=== PATIENT | male | born 1955 | race Caucasian/White ===

== ENCOUNTER 2024-06-17 05:53 | Day surgery (SDC) | payer MEDICARE ==
[2024-06-17] MEDS ORDERED: propofoL IV ONE ×2 (06:24→07:30)
[2024-06-17 06:54] LABS: ANION GAP 11.5 MEQ/L (5-15); Calcium 9.1 mg/dL (8.4-10.2); Creatinine 1 0.93 mg/dL (0.66-1.25); EST GLOMERULAR FILTRATION RATE 89.4 ML/MIN; Potassium 3.6 mmol/L (3.5-5.1)
[2024-06-17] MEDS ORDERED: Versed 2 MG/2 ML Injection ONE (07:01)
[2024-06-17 08:01] VITALS: O2SAT 96
[2024-06-17 08:09] VITALS: RESP 18
[2024-06-17 08:19] VITALS: BP 133/91; PULSE 53; TEMP 97.3
--- NOTE | 2024-06-18 12:00 | OP ---
SURGERY DATE/TIME: 06/17/2024 [id number] PREOPERATIVE DIAGNOSIS: Positive Cologuard. POSTOPERATIVE DIAGNOSIS: Colon polyps x2. PROCEDURE: Colonoscopy. SURGEON: Goyo Hill MD. ANESTHESIA: MAC by Reece Rutherford CRNA. ESTIMATED BLOOD LOSS: Minimal. SPECIMENS: Hot forceps polypectomy from the transverse colon and hot snare polypectomy from the sigmoid colon. DESCRIPTION OF PROCEDURE AND FINDINGS: After informed written consent was obtained, the patient was taken to the endoscopy suite. He was placed in a left lateral decubitus position, and anesthesia was titrated to desired level of consciousness. Digital rectal exam showed normal rectal tone with external hemorrhoids and no internal lesions. The scope was inserted in the rectum, and sequentially the entire colonic mucosa was traversed. The level of the cecum was reached and verified under direct visualization of the ileocecal valve. Upon withdrawal, there was a small sessile polyp in the transverse colon. This was grasped with forceps, cauterized, and removed in its entirety. Upon further withdrawal at approximately 45 cm scope depth, there was a slightly larger broad-based polypoid lesion which was encircled with a snare, cauterized at the base, and suctioned to the end of the scope and removed, as it was too large to fit the scope channel. It was retrieved and sent for pathology testing. The scope was then reinserted after the polyp was retrieved, and the remainder of the distal sigmoid colon and rectal area showed no other mucosal lesions. Prior to withdrawal, retroflexion showed no internal lesions here. The scope was removed, and the patient was transferred to the recovery room in good condition. I have advised him to follow up in a week for pathology results.
== END 2024-06-17 08:25 | disposition home or self-care (01) ==
LOC: SDC 05:53
PROVIDERS: ATTEND Family Medicine
DX: D12.3 Benign neoplasm of transverse colon (principal); C18.7 Malignant neoplasm of sigmoid colon; R19.5 Other fecal abnormalities; K64.4 Residual hemorrhoidal skin tags; I10 Essential (primary) hypertension
CPT/HCPCS: 36415; 80048; 93005; J2250; J2704

== ENCOUNTER 2024-07-31 11:18 | Emergency (ER) | payer MEDICARE ==
--- NOTE | 2024-07-31 11:26 | ERPHSYRPT ---
- History of Present Illness Time Seen by Provider: 07/31/24 11:26 Historian: patient Exam Limitations: no limitations Physician History: This is an obese 69-year-old white male patient who presents to the emergency department with intermittent left-sided sharp chest pain that began yesterday with associated mild shortness of breath. Today, he became more concerned be cause of the nonradiating, left-sided sharp chest pain became more constant. 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 Alfaro, but has never been diagnosed with coronary artery disease. He was recently diagnosed with colon cancer. 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 Patient did take a baby aspirin this morning. Patient has a history of hypertension and hyperlipidemia. Timing/Duration: yesterday Activities at Onset: none Quality: sharpness Location: other (Left anterior chest) Chest Pain Radiation: no radiation Severity of Pain-Max: mild (To moderate) Severity of Pain-Current: mild Modifying Factors: Improves With: nothing Associated Symptoms: shortness of breath (Mild), No cough Prior Chest Pain/Cardiac Workup: no prior chest pain, no prior cardiac workup Nitro Today/Relief: no nitro taken today Aspirin Treatment Today: 81 mg x 1, 81 mg x 3 (Provided by the emergency department on arrival to emergency room), provided at home Allergies/Adverse Reactions: Penicillins Allergy (Verified 07/31/24 11:23) Home Medications: Aspirin [Ecotrin] 81 mg PO DAILY 05/25/24 [History] Atenolol 50 mg [Tenormin 50 mg] 50 mg PO DAILY 05/25/24 [History] Atorvastatin Calcium 20 mg PO DAILY 05/25/24 [History] Elderberry Fruit [Elderberry] 350 mg PO DAILY 05/25/24 [History] Lisinopril/Hydrochlorothiazide [Lisinopril-Hctz 20-12.5 mg Tab] 1 each PO DAILY 05/25/24 [History] Multivitamin [Multi-Vitamin Daily] 1 each PO DAILY 05/25/24 [History] [place]-3 Fatty Acids/Fish Oil [Fish Oil 1,000 mg Capsule] 1,000 mg PO DAILY 05/25/24 [History] Zinc Gluconate [Zinc] 50 mg PO DAILY 05/25/24 [History] Travel Risk - International Travel Have you traveled outside of the country in past 3 weeks: No - Emerging Infectious Disease Are you exhibiting symptoms associated with any current EIDs: No - Review of Systems Constitutional: No Symptoms Eyes: No Symptoms Ears, Nose, & Throat: No Symptoms Respiratory: No Symptoms, Dyspnea Cardiac: Chest Pain Abdominal/Gastrointestinal: No Symptoms Genitourinary Symptoms: No Symptoms Musculoskeletal: No Symptoms Skin: No Symptoms Neurological: No Symptoms Psychological: No Symptoms Endocrine: No Symptoms Hematologic/Lymphatic: No Symptoms Immunological/Allergic: No Symptoms All Other Systems: Reviewed and Negative - Past Medical History Pertinent Past Medical History: Yes Neurological History: No Pertinent History ENT History: No Pertinent History Cardiac History: Hypertension, Other Respiratory History: Sleep Apnea Endocrine Medical History: Diabetes Type II Musculoskeletal History: No Pertinent History GI Medical History: Hernia History: No Pertinent History Psycho-Social History: No Pertinent History Male Reproductive Disorders: No Pertinent History - Past Surgical History Past Surgical History: Yes Neuro Surgical History: No Pertinent History Cardiac: No Pertinent History Respiratory: No Pertinent History Gastrointestinal: Hernia Repair Genitourinary: No Pertinent History Musculoskeletal: Other Male Surgical History: No Pertinent History Other Surgical History: cyst on knee removed when pt was 12 - Social History Smoking Status: Former smoker - Nursing Vital Signs Nursing Vital Signs: Initial Vital Signs Pulse Rate 70 07/31/24 11:24 Pain Scale Pain Intensity 5 - Physical Exam General Appearance: no apparent distress, alert, anxiety, obese Eye Exam: PERRL/EOMI, eyes nml inspection Ears, Nose, Throat Exam: normal ENT inspection, moist mucous membranes Neck Exam: normal inspection, non-tender, supple, full range of motion Respiratory Exam: normal breath sounds, chest tenderness (Left anterior chest), lungs clear, airway intact, No respiratory distress Cardiovascular Exam: regular rate/rhythm, normal heart sounds, normal peripheral pulses Gastrointestinal/Abdomen Exam: soft, normal bowel sounds, No tenderness Rectal Exam: not done Back Exam: normal inspection, normal range of motion, No CVA tenderness, No marcus tebral tenderness Extremity Exam: normal inspection, normal range of motion, pelvis stable Neurologic Exam: alert, oriented x 3, cooperative, 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 QTc is 461) Ordered Tests: Active Orders 24 hr Category Date Time Status EKG-ER Only STAT Care 07/31/24 11:27 Active IV Insertion STAT Care 07/31/24 11:27 Active Pulse Oximetry (ED) STAT Care 07/31/24 11:27 Active CHEST 1 VIEW (PORTABLE) Stat Exams 07/31/24 12:56 Completed CBC W DIFF Stat Lab 07/31/24 12:15 Completed CMP Stat Lab 07/31/24 12:15 Completed D-DIMER QUANTITATIVE Stat Lab 07/31/24 11:20 Completed MAGNESIUM Stat Lab 07/31/24 12:15 Completed TROPONIN Q4H Lab 07/31/24 12:15 Completed TROPONIN Q4H Lab 07/31/24 14:00 Completed TROPONIN Q4H Lab 07/31/24 19:30 Ordered [place] 3-7 Day Holter ONCE RT 07/31/24 13:26 Active Medication Summary Discontinued Medications Generic Name Dose Route Start Last Admin Trade Name Freq PRN Reason Stop Dose Admin Aspirin 324 mg 07/31/24 11:27 07/31/24 12:19 Aspirin 81 Mg Tab.Chew PO 07/31/24 11:28 324 mg STAT ONE Administration Aspirin Confirm 07/31/24 12:17 Aspirin 81 Mg Tab.Chew Administered 07/31/24 12:18 Dose 243 mg .ROUTE .STFileHold Document Management software-MED ONE Lab/Rad Data: Laboratory Result Diagrams 07/31/24 12:15 07/31/24 12:15 Laboratory Results 07/31/24 07/31/24 07/31/24 Range/Units 14:00 12:15 12:15 WBC (4.23-9.07) x10^3/uL RBC (4.63-6.08) x10^6/uL Hgb (13.7-17.5) g/dL Hct (40.1-51.0) % MCV (79.0-92.2) fL MCH (25.7-32.2) pg MCHC (32.3-36.5) g/dL RDW (11.6-14.4) % Plt Count (163-337) x10^3/uL MPV (9.4-12.4) fL Gran % (34.0-67.9) % Immature Gran % (Auto) (0.001-0.429) % Nucleat RBC Rel Count (0.00-0.2) % Eos # (Auto) (0.04-0.54) x10^3/uL Immature Gran # (Auto) (0.001-0.031) x10^3u/L Absolute Lymphs (auto) (1.32-3.57) x10^3/uL Absolute Monos (auto) (0.30-0.82) x10^3/uL Absolute Nucleated RBC (0.00-0.012) x10^3u/L Lymphocytes % (21.8-53.1) % Monocytes % (5.3-12.2) % Eosinophils % (0.8-7.0) % Basophils % (0.2-1.2) % Absolute Granulocytes (1.78-5.38) x10^3/uL Basophils # (0.01-0.08) x10^3/uL D-Dimer (0.0-0.50) mg/L Sodium 140 (135-145) mmol/L Potassium 3.8 (3.5-5.1) mmol/L Chloride 107 (98-107) mmol/L Carbon Dioxide 23 (22-30) mmol/L Anion Gap 13.6 (5-15) MEQ/L BUN 16 (9-20) mg/dL Creatinine 0.83 (0.66-1.25) mg/dL Estimated GFR 95.3 ML/MIN Glucose 137 H (74-106) mg/dL Calcium 9.1 (8.4-10.2) mg/dL Magnesium 2.2 (1.6-2.3) mg/dL Total Bilirubin 1.70 H (0.2-1.3) mg/dL AST 41 (17-59) U/L ALT 50 (0-50) U/L Alkaline Phosphatase 49 (38-126) U/L Troponin I < 0.012 < 0.012 (0.000-0.033) ng/mL Serum Total Protein 6.7 (6.3-8.2) g/dL Albumin 4.1 (3.5-5.0) g/dL 07/31/24 07/31/24 Range/Units 12:15 11:20 WBC 6.3 (4.23-9.07) x10^3/uL RBC 5.07 (4.63-6.08) x10^6/uL Hgb 14.9 (13.7-17.5) g/dL Hct 43.4 (40.1-51.0) % MCV 85.6 (79.0-92.2) fL MCH 29.4 (25.7-32.2) pg MCHC 34.3 (32.3-36.5) g/dL RDW 13.0 (11.6-14.4) % Plt Count 170 (163-337) x10^3/uL MPV 13.5 H (9.4-12.4) fL Gran % 64.2 (34.0-67.9) % Immature Gran % (Auto) 0.3 (0.001-0.429) % Nucleat RBC Rel Count 0.0 (0.00-0.2) % Eos # (Auto) 0.11 (0.04-0.54) x10^3/uL Immature Gran # (Auto) 0.02 (0.001-0.031) x10^3u/L Absolute Lymphs (auto) 1.57 (1.32-3.57) x10^3/uL Absolute Monos (auto) 0.52 (0.30-0.82) x10^3/uL Absolute Nucleated RBC 0.00 (0.00-0.012) x10^3u/L Lymphocytes % 24.8 (21.8-53.1) % Monocytes % 8.2 (5.3-12.2) % Eosinophils % 1.7 (0.8-7.0) % Basophils % 0.8 (0.2-1.2) % Absolute Granulocytes 4.07 (1.78-5.38) x10^3/uL Basophils # 0.05 (0.01-0.08) x10^3/uL D-Dimer 0.32 (0.0-0.50) mg/L Sodium (135-145) mmol/L Potassium (3.5-5.1) mmol/L Chloride (98-107) mmol/L Carbon Dioxide (22-30) mmol/L Anion Gap (5-15) MEQ/L BUN (9-20) mg/dL Creatinine (0.66-1.25) mg/dL Estimated GFR ML/MIN Glucose (74-106) mg/dL Calcium (8.4-10.2) mg/dL Magnesium (1.6-2.3) mg/dL Total Bilirubin (0.2-1.3) mg/dL AST (17-59) U/L ALT (0-50) U/L Alkaline Phosphatase (38-126) U/L Troponin I (0.000-0.033) ng/mL Serum Total Protein (6.3-8.2) g/dL Albumin (3.5-5.0) g/dL - Progress Progress: improved, re-examined Air Movement: good Progress Note: 07/31/24 12:48 My medical decision making in the assignment of moderate complexity to this patient's medical issue today is based on review of the patient's past medical history, review of the patient's medication list, review of the patient's drug allergy list, history present illness and physical findings on examination. The workup in this patient includes IV line placement, twelve-lead EKG, troponin level, BNP level, D-dimer level, magnesium level, CBC, CMP. Will provide the p atient with 3 baby aspirin tablets. Depending on the D-dimer level, the patient will undergo chest x-ray or CT scan of the chest with contrast. Differential diagnosis includes but is not limited to anxiety about health, muscle skeletal pain, myocardial infarction, electrolyte abnormalities, pneumo jack, arrhythmias 07/31/24 14:29 I interpreted the patient's laboratory data results. Based on the laboratory data results, there are no acute, emergent medical issues. I interpreted the repeat, second twelve-lead EKG that was performed at 1411 on 07/31/2024. Heart rate is 60 bpm. It is normal sinus rhythm. There are normal intervals, normal axis deviation and normal QRS. The QTc is 428. There is no evidence of any acute ischemia. I interpreted the patient's chest x-ray preliminary report. There is no evidence of any acute cardiopulmonary process. 07/31/24 15:17 I reexamined the patient. The patient has no chest pain. He is not short of breath. The second troponin is also normal. Blood Culture(s) Obtained: No Antibiotics given: No Counseled pt/family regarding: lab results, diagnosis, need for follow-up, rad results Medical Desision Making - Diagnostic Testing Diagnostic test were ordered, analyzed, and reviewed by me: Yes Radiological Interpretation: Interpreted by me, Reviewed by me, Teleradiologist Report - Risk of complications Low Risk: Low risk of morbidity from additional dx testing or treatment - Departure Departure Disposition: Home Clinical Impression: Nonspecific chest pain Condition: Stable Critical Care Time: No Referrals: ZORAN VEGA MD [Primary Care Provider] - Follow up/PCP as directed Additional Instructions: Take all your medications as prescribed. Call your primary care provider and dirt contractor today, 08/28/2024, to make arrangements for follow-up appointment to be seen in the next 3 to 5 days.
[2024-07-31 11:27] VITALS: TEMP 97.2
[2024-07-31 11:49] LABS: Absolute Neutrophil Ct (ANC) 4.07 x10^3/uL (1.78-5.38); BASOPHIL % 0.8 % (0.2-1.2); Basophil (Absolute #) 0.05 x10^3/uL (0.01-0.08); Eosinophil % 1.7 % (0.8-7.0); Eosinophil (Absolute #) 0.11 x10^3/uL (0.04-0.54); Hematocrit 43.4 % (40.1-51.0); Hemoglobin 14.9 g/dL (13.7-17.5); IMMATURE GRAN # 0.02 x10^3u/L (0.001-0.031); IMMATURE GRAN % 0.3 % (0.001-0.429); Lymphocyte (Absolute #) 1.57 x10^3/uL (1.32-3.57); Lymphocytes % 24.8 % (21.8-53.1); Mean Cell Volume 85.6 fL (79.0-92.2); Mean Corpuscular Hemoglobin 29.4 pg (25.7-32.2); Mean Corpuscular Hgb Concent. 34.3 g/dL (32.3-36.5); Mean Platelet Volume 13.5 fL (9.4-12.4); Monocyte (Absolute #) 0.52 x10^3/uL (0.30-0.82); Monocytes % 8.2 % (5.3-12.2); Neutrophil % 64.2 % (34.0-67.9); Platelet Count 170 x10^3/uL (163-337); Red Blood Count 5.07 x10^6/uL (4.63-6.08); White Blood Count 6.3 x10^3/uL (4.23-9.07)
[2024-07-31] MEDS ORDERED: BABY ASPIRIN 81 MG CHEW ONE (12:17)
[2024-07-31] MEDS: BABY ASPIRIN 81 MG CHEW PO ONE (12:19)
[2024-07-31 12:30] LABS: ALBUMIN 4.1 g/dL (3.5-5.0); ANION GAP 13.6 MEQ/L (5-15); BILIRUBIN,TOTAL 1.7 mg/dL (0.2-1.3); Calcium 9.1 mg/dL (8.4-10.2); Creatinine 1 0.83 mg/dL (0.66-1.25); EST GLOMERULAR FILTRATION RATE 95.3 ML/MIN; MAGNESIUM 2.2 mg/dL (1.6-2.3); Potassium 3.8 mmol/L (3.5-5.1); Total Protein 6.7 g/dL (6.3-8.2)
--- NOTE | 2024-07-31 14:30 | XRAY ---
CLINICAL HISTORY: Left-sided chest pain COMPARISON: None. TECHNIQUE: X-ray images of the chest were obtained in anterior-posterior projection. FINDINGS: Pulmonary Parenchyma: The left para-cradial/lower lung zone shows focal opacity partially obscuring the heart border showing central lucency, suspecting cavitation. Right lower lung zone linear hyperdensity suspecting subsegmental atelectasis. Bilateral peribronchial cuffing/thickening is more evident at both the para-cardiac and lower lung zones. No lung nodules. No evidence of pleural effusion or pleural thickening. Heart and Mediastinum: Average-size heart associated with ectatic/dilated thoracic aorta. Prominent/enlarged both conor yet No hilar or mediastinal lymphadenopathy. Bony Thorax: The bony thorax appears intact without fractures or deformities. Soft Tissues: Soft tissues overlying the chest wall are unremarkable. IMPRESSION: 1. The left para-cradial/lower lung zone shows focal opacity partially obscuring the heart border showing central lucency, subsegmental consolidation with suspecting cavitation, needs confirmation by CT Chest if clinically warranted. 2. Right lower lung zone linear hyperdensity likely subsegmental atelectasis. 3. Bilateral peribronchial cuffing/thickening is more evident at both the para-cardiac and lower lung zones, bronchitis. Electronically Signed by: Jai Damon MD. (07/31/2024 14:25:28 EST)
[2024-07-31 15:43] VITALS: BP 152/90; PULSE 77; RESP 16; O2SAT 97
== END 2024-07-31 15:45 | disposition home or self-care (01) ==
LOC: ED 11:18
DX: R07.9 Chest pain, unspecified (principal); I10 Essential (primary) hypertension; E78.5 Hyperlipidemia, unspecified; E11.9 Type 2 diabetes mellitus without complications; Z79.899 Other long term (current) drug therapy
CPT/HCPCS: 36415; 71045; 80053; 83735; 84484; 85025; 85379; 93005; 93225; 94760; 99284; 99285; A9270-GY